=== PATIENT | female | born 1995 | race Asian ===

== ENCOUNTER 2022-11-23 02:51 | Emergency (ER) | payer MEDICAID ==
[~2022-11-23] VITALS: Ht 157.5 cm; Wt 62.6 kg
[~2022-11-23 02:51] MED LIST: CYCL-711 PO; LID5T TP; NAPR-1704 PO
[2022-11-23 03:23] VITALS: BP 128/82; PULSE 71; RESP 16; TEMP 97.2; O2SAT 98
[2022-11-23] MEDS ORDERED: MORPHINE SULFATE 4 MG/ML SYR IM ONE (05:50)
[2022-11-23] MEDS ORDERED: CYCLOBENZAPRINE 10 MG TAB PO ONE (05:50)
[2022-11-23] MEDS ORDERED: LIDOCAINE 5% 1 EA PATCH TP SCH (05:50)
[2022-11-23] MEDS ORDERED: IBUP-2213 PO (06:44)
[2022-11-23] MEDS ORDERED: PRED20TA5 PO (06:44)
[2022-11-23] MEDS ORDERED: ACET-5629 PO (06:44)
[2022-11-23] MEDS ORDERED: KETOROLAC 30 MG/ML VIAL IM ONE (06:50)
[2022-11-23] MEDS ORDERED: ONDANSETRON 4 MG ODT PO ONE (06:50)
[2022-11-23] MEDS ORDERED: predniSONE 20 MG TAB PO ONE (06:50)
[2022-11-23 06:59] LABS: APPEARANCE,URINE CLEAR (CLEAR); BILIRUBIN,URINE NEGATIVE (NEGATIVE); BLOOD, URINE NEGATIVE (NEGATIVE); COLOR,URINE YELLOW (YELLOW); LEUKOCYTE ESTERASE ,URINE NEGATIVE (NEGATIVE); NITRITE, URINE NEGATIVE (NEGATIVE); PROTEIN,URINE NEGATIVE (NEGATIVE); UGLUCOSE NEGATIVE (NEGATIVE); UROBILINOGEN,URINE 0.2 EU/dL (0.2 - 1)
[2022-11-23 07:25] VITALS: BP 120/82; PULSE 71; RESP 16; TEMP 97.1; O2SAT 98
== END 2022-11-23 07:25 | disposition home or self-care (01) ==
LOC: MED 02:51
DX: M54.41 Lumbago with sciatica, right side (principal); Z79.899 Other long term (current) drug therapy
CPT/HCPCS: 81003; 81025; 96372; 99284; J1885; J2270; J7512; Q0162

== ENCOUNTER 2023-06-30 22:37 | Emergency (ER) | payer MEDICAID ==
[~2023-06-30] VITALS: Ht 157.5 cm; Wt 68.0 kg
[~2023-06-30 22:37] MED LIST changes: +ACET-5629 PO; +IBUP-2213 PO; +PRED20TA5 PO
[2023-06-30 22:59] VITALS: BP 111/66; PULSE 91; RESP 16; TEMP 97.4; O2SAT 98
[2023-06-30 23:07] VITALS: BP 111/66; PULSE 91; RESP 16; TEMP 97.4
[2023-07-01 00:07] VITALS: O2SAT 98
[2023-07-01] MEDS ORDERED: IBUP-2213 PO (01:01)
[2023-07-01] MEDS ORDERED: DIPH25TA53 PO (01:01)
[2023-07-01] MEDS ORDERED: PRED20TA5 PO (01:01)
== END 2023-07-01 01:08 | disposition home or self-care (01) ==
LOC: MED 22:37
DX: R05.9 Cough, unspecified (principal); R07.9 Chest pain, unspecified; R06.02 Shortness of breath; F17.200 Nicotine dependence, unspecified, uncomplicated; Z79.899 Other long term (current) drug therapy
CPT/HCPCS: 71045; 99283